=== PATIENT | male | born 1925 | race Caucasian/White ===

== ENCOUNTER → 2016-08-10 | Outpatient (CLI) | payer OTHER, BC ==
[~2016-08-10] VITALS: Ht 165.1 cm; Wt 68.2 kg
[~2016-08-10] MED LIST: ASCORBIC ACID250 MG PO; ASCORBIC ACID500 M3 PO; ASPIRIN81 M1 PO; ATORVASTATIN CA80 MG PO; Ascorbic Acid,Ester- PO; Aspirin E.C. PO; BENICAR HCT 201 EACH PO; CARDURA2 M1 PO; CINNAMON BARK500 MG PO; CITRUCEL500 MG PO; CLARITIN10 M3 PO; CRANBERRY450 M1 PO; CRANBERRY450 M2 PO; Cardura PO; Claritin,Alavart PO; Colace PO; Cozaar PO; Dulcolax PO; ESSENTIAL DAIL1 EACH PO; FEROSUL325 MG PO; FIBER TABS625 MG PO; FIBER500 MG PO; FISH OIL 1,0001 EAC7 PO; FISH OIL CONC1 EACH PO; FISH OIL PO; FUROSEMIDE40 MG PO; GLUCOSAMINE-CH1 EA44 PO; JANUMET 50/51 TABLET PO; KOMBIGLYZE XR1 EAC2 PO; KOMBIGLYZE XR1 EACH PO; LANSOPRAZOLE30 MG PO; LEVOTHYROXINE50 MCG PO; LIPITOR40 MG PO; LORATADINE10 M2 PO; Lipitor PO; MIRALAX17 GM PO; MULTIVITAMIN1 EAC2 PO; MYRBETRIQ25 MG PO; Mineral Oil PO; Miralax, Glycolax PO; POLYETHYLENE GL17 GM PO; Prevacid PO; SERTRALINE HCL100 MG PO; Senokot,Sennagen PO; Sodium Chloride PO; TRAMADOL HCL50 MG PO; TYLENOL REGULA325 MG PO; VITAMIN D2000 INTUN PO; Vicodin,Norco 5/325 PO; Vitamin D PO; ZOLOFT100 MG PO; Zoloft PO
[2016-08-10 10:00] VITALS: BP 121/65
== END | disposition home or self-care (01) ==
LOC: IVINF 09:40
DX: M81.0 Age-related osteoporosis without current pathological fracture (principal)
CPT/HCPCS: 96365; J3489

== ENCOUNTER 2017-01-25 21:25 | Emergency (ER) | payer OTHER ==
[~2017-01-25] VITALS: Ht 172.7 cm; Wt 68.1 kg
[2017-01-25 22:57] LABS: HEMATOCRIT 35.5 % (38.0-50.0); MCH 33.3 PG (29.0-34.0); MCHC 34.6 G/DL (30.0-36.0); MCV 96.2 FL (86-99); MEAN PLAT.VOLUME 9.9 uM^3 (9.0-12.4); PLATELET COUNT 164 K/uL (156-360); RBC DIS.WIDTH-CV 12.8 % (11.8-14.6); RBC DIS.WIDTH-SD 45.4 % (39-53); RED BLOOD COUNT 3.69 M/uL (4.00-5.50); WHITE BLOOD COUNT 9.4 K/uL (4.1-10.2)
[2017-01-25 23:20] LABS: CHLORIDE 102 mEq/L (99-109); POTASSIUM 3.9 mEq/L (3.7-5.4); SODIUM 135 mEq/L (136-147)
[2017-01-25 23:22] LABS: GLUCOSE 132 mg/dL (70-99)
[2017-01-25 23:23] LABS: ANION GAP 11 MEQ/L (2-14)
[2017-01-25 23:25] LABS: GFR ESTIMATE (CALCULATED) > 59 mL/min/ (58.99-99999)
[2017-01-25 23:26] LABS: UREA NITROGEN (BUN) 41 mg/dL (9-23)
[2017-01-26 00:23] VITALS: BP 162/82
== END 2017-01-26 00:10 | disposition home or self-care (01) ==
LOC: EME 21:25
PROVIDERS: Emergency Medicine
PROC: 0T9B70Z Drainage of Bladder with Drainage Device, Via Natural or Artificial Opening (ICD-10-PCS; principal; 2017-01-25)
DX: R33.9 Retention of urine, unspecified (principal); R31.9 Hematuria, unspecified; E78.5 Hyperlipidemia, unspecified; I25.2 Old myocardial infarction; K21.9 Gastro-esophageal reflux disease without esophagitis; Z85.46 Personal history of malignant neoplasm of prostate; Z95.1 Presence of aortocoronary bypass graft; Z91.040 Latex allergy status; Z88.8 Allergy status to other drugs, medicaments and biological substances; Z87.891 Personal history of nicotine dependence
CPT/HCPCS: 80048; 85027; 99281; 99285; J2405; J7030

== ENCOUNTER 2017-08-07 19:32 | Emergency (ER) | payer OTHER ==
[~2017-08-07] VITALS: Ht 172.7 cm; Wt 69.0 kg
[2017-08-07 21:03] LABS: APPEARANCE CLOUDY ((CLEAR))
[2017-08-07 21:04] LABS: BILIRUBIN NEGATIVE; BLOOD LARGE; GLUCOSE (STRIP) NEGATIVE; KETONES NEGATIVE; LEUKOCYTES NEGATIVE; NITRITE NEGATIVE; PROTEIN (STRIP) 100; SPECIFIC GRAVITY 1.015 (1.000-1.030); UROBILINOGEN 0.2 MG/DL (0.2-1.0)
[2017-08-07 21:05] LABS: COLOR RED ((YELLOW))
[2017-08-07 21:06] LABS: RED BLOOD CELLS TNTC /HPF (0-5); UCUL ADDED? YES
[2017-08-07 21:50] VITALS: BP 175/104
== END 2017-08-07 21:51 | disposition home or self-care (01) ==
LOC: EME 19:32
PROVIDERS: Physician Assistant
PROC: 0T9B70Z Drainage of Bladder with Drainage Device, Via Natural or Artificial Opening (ICD-10-PCS; principal; 2017-08-07)
DX: R33.9 Retention of urine, unspecified (principal); R31.9 Hematuria, unspecified; Z85.46 Personal history of malignant neoplasm of prostate; Z92.3 Personal history of irradiation; K21.9 Gastro-esophageal reflux disease without esophagitis; E78.5 Hyperlipidemia, unspecified; I25.2 Old myocardial infarction; Z95.1 Presence of aortocoronary bypass graft; Z87.891 Personal history of nicotine dependence; Z91.040 Latex allergy status; Z88.5 Allergy status to narcotic agent; Z88.8 Allergy status to other drugs, medicaments and biological substances
CPT/HCPCS: 81003; 87086; 99281; 99284

== ENCOUNTER → 2017-09-05 | Outpatient (CLI) | payer OTHER ==
[~2017-09-05] VITALS: Ht 165.1 cm; Wt 70.0 kg
[~2017-09-05] MED LIST changes: +DITROPAN XL5 MG PO; +LISINOPRIL5 MG PO; +LODINE400 MG PO; +OXYTROL TRANSD3.9 MG TD; +VESICARE5 MG PO
[2017-09-05 10:42] VITALS: BP 127/69
== END | disposition home or self-care (01) ==
LOC: IVINF 08-14 15:00
DX: M81.0 Age-related osteoporosis without current pathological fracture (principal); T50.995A Adverse effect of other drugs, medicaments and biological substances, initial encounter; Z88.8 Allergy status to other drugs, medicaments and biological substances
CPT/HCPCS: 96365; J3489